=== PATIENT | male | born 1985 | race Caucasian/White ===

== ENCOUNTER 2019-02-02 18:11 | Emergency (ER) | payer SELFPAY ==
[~2019-02-02] VITALS: Ht 167.6 cm; Wt 83.0 kg
[~2019-02-02 18:11] MED LIST: ASPI-529 PO; CLIN-96 PO; CLON-528 PO; GLU850T PO; LANTUS SQ; METF-436 PO
[2019-02-02 18:27] VITALS: BP 133/102
== END 2019-02-02 19:04 | disposition left against medical advice (07) ==
LOC: ER 18:12
DX: R19.7 Diarrhea, unspecified (principal); R11.0 Nausea; Z53.21 Procedure and treatment not carried out due to patient leaving prior to being seen by health care provider